=== PATIENT | male | born 1960 | race Caucasian/White ===

== ENCOUNTER → 2022-07-27 21:04 | Outpatient (CLI) | payer OTHER, SELFPAY ==
[2022-07-27 21:44] LABS: Basophils # 0.1 K/mm3 (0-0.2); Basophils % 1.3 % (0.1-2.0); Eosinophils # 0.2 K/mm3 (0.0-0.4); Eosinophils % 2.9 % (0.1-12.0); Hematocrit 47.2 % (42.0-52.0); Hemoglobin 14.8 g/dL (14.1-18.0); Lymphocytes # 1.8 K/mm3 (0.7-4.5); Lymphocytes % 34.9 % (10-50); Mean Corpuscular HGB Conc 31.4 g/dL (31.8-35.4); Mean Corpuscular Hemoglobin 31.1 pg (27.0-31.2); Mean Corpuscular Volume 99.1 fl (80-94); Mean Platelet Volume 9.7 fl (7.4-10.4); Monocytes # 0.4 K/mm3 (0.1-1.0); Monocytes % 6.9 % (1.7-9.3); Neutrophils # 2.8 K/mm3 (1.8-7.8); Neutrophils % 54.1 % (37.0-80.0); Platelet Count 318 K/mm3 (142-424); Red Blood Count 4.76 M/mm3 (4.60-6.20); Red Cell Distribution Width 12.8 % (11.5-17.5); White Blood Count 5.3 K/mm3 (4.8-10.8)
[2022-07-27 21:48] LABS: Alanine Aminotransferase 36 U/L (12-78); Albumin Level 4.3 g/dl (3.5-5.0); Albumin/Globulin Ratio 1.5 (1.1-1.8); Alkaline Phosphatase 64 U/L (38-126); Anion Gap 14.8 mEq/L (5-15); Aspartate Amino Transferase 53 U/L (17-59); Blood Urea Nitrogen 24 mg/dl (9-20); Calcium 9.1 mg/dl (8.4-10.2); Carbon Dioxide 25 mmol/L (22.0-30.0); Chloride 105 mmol/L (98-107); Chol/HDL Ratio 3.8 (1-3.5); Cholesterol 181 mg/dl (140-200); Estimated Glomerular Filt Rate 62 ml/min (>60); GFR (African American) 75 ML/MIN (>60); Globulin 2.8 g/dL (1.3-3.2); Glucose 112 mg/dl (74-100); HDL Cholesterol 48 mg/dl (40-60); Potassium 4.8 mmoL/L (3.5-5.1); Sodium 140 mmol/L (136-145); Total Protein,Serum 7.1 g/dl (6.3-8.2); Triglycerides 113 mg/dl (30-150); VLDL Cholesterol 23 mg/dL (0-40)
[2022-07-27 22:19] LABS: Prostate Specific Ag Screen 3.5 ng/ml (0.0-4.0); Thyroid Stimulating Hormone 1.25 uIU/mL (0.465-4.68)
[2022-07-29 08:55] LABS: Direct LDL Cholesterol 97 mg/dL (100-129)
[2022-08-04 16:12] LABS: Testosterone,Free 4.8 pg/mL (6.6-18.1)
== END ==
PROVIDERS: PCP Family Medicine; Visit Provider Family Medicine
DX: I49.9 Cardiac arrhythmia, unspecified (principal); R53.83 Other fatigue; N40.0 Benign prostatic hyperplasia without lower urinary tract symptoms; Z12.5 Encounter for screening for malignant neoplasm of prostate
CPT/HCPCS: 80053; 80061; 84402; 84403; 84443; 85025; G0103

== ENCOUNTER → 2022-07-29 12:38 | Outpatient (CLI) | payer OTHER, SELFPAY ==
--- NOTE | 2022-07-29 12:41 | CA_ITS ---
APPROVED REPORT EXAM: Comprehensive 2D, Doppler, and color-flow Echocardiogram Diagnostic Medical Sonographer: Ami Barbour, RCS, RVS Ht: 6 ft 0 in Wt: 195lbs BSA: 2.11 BP: 132/82 mmHg Indications: Murmur, Fatigue 2D Dimensions IVSd 1.05 cm LVEF (Visual) 73.30 % PWd 0.96 cm LA Volume 50.30 mL LVDd 4.88 cm LA Volume Index 23.80 mL/m2 (M/F) 16-34 LVDs 2.81 cm Aortic Root 2.97 cm Left Atrium 2.42 cm LVOT 2.12 cm (M/F) 1.5-2.5 M-Mode Dimensions RVDd 2.48 cm (0.9-2.6) LA Diam 2.99 cm (1.9-4.0) LVDd 4.93 cm (3.5-5.7) Ao Diam 3.33 cm (2.0-3.7) LVDs 3.08 cm (3.5-5.7) IVSd 0.97 cm (0.6-1.1) PWd 0.97 cm (0.6-1.1) EF (Teich) 67.40% EPSs 0.20 cm FS 37.50% EDV (Teich) 114.40 mL TAPSE 2.51 (<1.7) ESV (Teich) 37.30 mL LV Diastology E Decel Time 237.00 (160-240 msec) E/A Ratio 2.12 MED E' 10.00 (< 7 cm/sec) MED A' 10.80 cm/s E'/MED E' Ratio 13.38 (>14) LAT E' 10.00 (<10 cm/sec) LAT A' 10.00 cm/s E/LAT E' Ratio 13.38 (>14) Aortic Valve LVOT Max 129.00 (70-110 cm/s) LVOT VTI 28.84 cm AoV Peak Jimmy. 163.00 (50-130 cm/s) AO Peak GR. 10.60 mmHg AO Mean GR. 5.90 (<5 mmHg) AO VTI 37.13 (18-25 cm) CORBY (VTI) 2.74 (2.5-4.5 cm2) Mitral Valve MV A Velocity 63.00 (40-130 cm/s) E/A Ratio 2.12 MV Decel. Time 237.00 (160-240 ms) MV Mean Gr. 1.30 (<2mmHg) MV PHT 70.00 ms Pulmonary Valve PV Peak Velocity 105.00 (50-150 cm/s) IN End VMAX 180.00 cm/s Tricuspid Valve TR P. Velocity 202.00 cm/s RAP Estimate 10.00 mmHg RVSP 26.40 mmHg Left Ventricle Left atrium is normal size, left ventricle is normal size, there is no concentric left ventricular hypertrophy, estimated ejection fraction 55% with no regional wall motion abnormality, diastolic parameters are within normal range. Right Ventricle Right atrium and right ventricle are normal size and contractility. Aortic Valve Aortic valve is minimally thickened and fibrosed there is no aortic stenosis or aortic insufficiency. Mitral Valve Mitral valve grossly normal, there is trace mitral regurgitation. Tricuspid Valve Tricuspid valve grossly normal, there is trace tricuspid regurgitation, tricuspid regurgitation jet velocity is inadequate for calculation of the right ventricular systolic pressure. Pulmonic Valve Pulmonic valve is poorly visualized. Great Vessels Aortic root is normal size. Inferior vena cava is normal size with normal inspiratory collapse. Pericardium No significant pericardial effusion noted. Conclusion 1. Normal left ventricular size preserved left ventricular systolic function, estimated ejection fraction 55% with no regional wall motion abnormality, diastolic parameters are within normal range. 2. Trace mitral and tricuspid regurgitation. 3. No significant pericardial effusion noted. 4. Inferior vena cava is normal size with normal inspiratory collapse. Electronically signed by : Dominik Perdomo MD 07/30/2022 12:41:47
== END ==
PROVIDERS: PCP Family Medicine; Visit Provider Family Medicine
DX: I49.9 Cardiac arrhythmia, unspecified (principal); R01.1 Cardiac murmur, unspecified
CPT/HCPCS: 93306

== ENCOUNTER → 2022-08-11 05:55 | Outpatient (CLI) | payer OTHER, SELFPAY ==
[2022-08-20 10:14] LABS: Testosterone, Total, LC/MS 585 ng/dL (.)
== END ==
PROVIDERS: PCP Family Medicine; Visit Provider Family Medicine
DX: R53.83 Other fatigue (principal)
CPT/HCPCS: 84403

== ENCOUNTER → 2023-04-11 17:08 | Outpatient (CLI) | payer OTHER, SELFPAY ==
[2023-04-11 19:46] LABS: Basophils % 0.4 % (0.1-2.0); Eosinophils # 0.1 K/mm3 (0.0-0.4); Eosinophils % 1.1 % (0.1-12.0); Hematocrit 43.3 % (42.0-52.0); Hemoglobin 13.9 g/dL (14.1-18.0); Lymphocytes # 1.6 K/mm3 (0.7-4.5); Lymphocytes % 22.8 % (10-50); Mean Corpuscular HGB Conc 32.2 g/dL (31.8-35.4); Mean Corpuscular Hemoglobin 30.6 pg (27.0-31.2); Mean Corpuscular Volume 95.2 fl (80-94); Mean Platelet Volume 9.3 fl (7.4-10.4); Monocytes # 0.5 K/mm3 (0.1-1.0); Monocytes % 7.2 % (1.7-9.3); Neutrophils # 4.7 K/mm3 (1.8-7.8); Neutrophils % 68.6 % (37.0-80.0); Platelet Count 296 K/mm3 (142-424); Red Blood Count 4.54 M/mm3 (4.60-6.20); Red Cell Distribution Width 12.7 % (11.5-17.5); White Blood Count 6.8 K/mm3 (4.8-10.8)
[2023-04-11 19:56] LABS: Alanine Aminotransferase 40 U/L (12-78); Albumin Level 4.2 g/dl (3.5-5.0); Albumin/Globulin Ratio 1.7 (1.1-1.8); Alkaline Phosphatase 62 U/L (38-126); Anion Gap 16.7 mEq/L (5-15); Aspartate Amino Transferase 39 U/L (17-59); Bilirubin,Total 0.8 mg/dl (0.2-1.3); Blood Urea Nitrogen 25 mg/dl (9-20); Calcium 8.7 mg/dl (8.4-10.2); Carbon Dioxide 24 mmol/L (22.0-30.0); Chloride 101 mmol/L (98-107); Cholesterol 175 mg/dl (140-200); Estimated Glomerular Filt Rate 62 ml/min (>60); GFR (African American) 74 ML/MIN (>60); Globulin 2.5 g/dL (1.3-3.2); Glucose 90 mg/dl (74-100); HDL Cholesterol 58 mg/dl (40-60); Potassium 4.7 mmoL/L (3.5-5.1); Sodium 137 mmol/L (136-145); Total Protein,Serum 6.7 g/dl (6.3-8.2); Triglycerides 76 mg/dl (30-150); VLDL Cholesterol 15 mg/dL (0-40)
[2023-04-11 20:07] LABS: Direct LDL Cholesterol 103.33 mg/dL (100-129)
[2023-04-11 20:11] LABS: T4 (Thyroxine) 7.2 ug/dl (5.53-11.0)
[2023-04-11 20:13] LABS: 25-OH Vitamin D, Total 90.2 ng/mL (30-100)
[2023-04-11 20:25] LABS: Thyroid Stimulating Hormone 0.94 uIU/mL (0.465-4.68)
[2023-04-11 20:44] LABS: Vitamin B12 691 pg/mL (239-931)
[2023-04-11 21:18] LABS: Hemoglobin A1C 5.4 % (4.0-6.0)
[2023-04-13 13:58] LABS: Estradiol 35.6 pg/mL (7.6-42.6); PSA, Free 0.46 ng/mL; Prostate Specific Ag 6.1 ng/mL (0.0-4.0); Testosterone,Total 651 ng/dL (264-916); Thyroid Peroxidase Antibodies <9 IU/mL (0-34); Triiodothyronine (T3) Free 3.4 pg/mL (2.0-4.4)
== END ==
PROVIDERS: PCP Urology; Visit Provider Urology
DX: E55.9 Vitamin D deficiency, unspecified (principal); R41.3 Other amnesia; R51.9 Headache, unspecified; M25.50 Pain in unspecified joint; G47.00 Insomnia, unspecified; D51.0 Vitamin B12 deficiency anemia due to intrinsic factor deficiency; R53.83 Other fatigue; E07.9 Disorder of thyroid, unspecified; E29.1 Testicular hypofunction; Z12.5 Encounter for screening for malignant neoplasm of prostate
CPT/HCPCS: 80053; 80061; 82306; 82607; 82670; 83036; 84153; 84154; 84403; 84436; 84443; 84481; 85025; 86376

== ENCOUNTER → 2023-07-26 21:07 | Outpatient (CLI) | payer OTHER, SELFPAY ==
[2023-07-26 22:26] LABS: Basophils % 0.7 % (0.1-2.0); Eosinophils # 0.1 K/mm3 (0.0-0.4); Eosinophils % 1.2 % (0.1-12.0); Hematocrit 46.8 % (42.0-52.0); Hemoglobin 15.4 g/dL (14.1-18.0); Lymphocytes # 1.3 K/mm3 (0.7-4.5); Lymphocytes % 25.8 % (10-50); Mean Corpuscular Hemoglobin 31.5 pg (27.0-31.2); Mean Corpuscular Volume 95.6 fl (80-94); Monocytes # 0.4 K/mm3 (0.1-1.0); Monocytes % 8.2 % (1.7-9.3); Neutrophils # 3.2 K/mm3 (1.8-7.8); Neutrophils % 64.2 % (37.0-80.0); Platelet Count 274 K/mm3 (142-424); Red Cell Distribution Width 12.7 % (11.5-17.5)
[2023-07-28 08:18] LABS: Estradiol 24.7 pg/mL (7.6-42.6); Prostate Specific Ag 4.2 ng/mL (0.0-4.0); Testosterone,Total 618 ng/dL (264-916)
== END ==
PROVIDERS: PCP Urology; Visit Provider Urology
DX: I49.9 Cardiac arrhythmia, unspecified (principal); R53.83 Other fatigue; N40.0 Benign prostatic hyperplasia without lower urinary tract symptoms; Z12.5 Encounter for screening for malignant neoplasm of prostate
CPT/HCPCS: 82670; 84153; 84154; 84403; 85025

== ENCOUNTER 2024-01-23 07:43 | Day surgery (SDC) | payer OTHER, SELFPAY ==
[2024-01-23 07:52] VITALS: BP 139/71; PULSE 54; RESP 18; TEMP 36.2; O2SAT 98; BMI 25.6
[2024-01-23 08:25] VITALS: BP 130/65; PULSE 57; RESP 18; TEMP 36.2; O2SAT 98
--- NOTE | 2024-01-23 08:25 | P.OP_ITS ---
Date of procedure: 01/23/24 Pre-op Diagnosis:: Sebaceous cyst on the posterior neck Post-op Diagnosis:: Some Procedure performed:: Excision of probable inclusion cyst left posterior neck (excisional length 2.5 cm) with intermediate complexity closure Surgeon:: Rip Li MD Anesthesia: local Estimated blood loss (mL): 3 Operative findings:: Consistent with noninfected sebaceous cyst Operative note:: Patient was taken to the local procedure room. He was positioned in the lateral position. The area was prepped and draped in the standard surgical fashion. Lesion was marked with a skin marker. Local anesthetic was infiltrated. Tammy ptical incision was made. Careful dissection was carried down to the underlying cyst. It was excised using scissor dissection in its entirety with the overlying attached skin ellipse. There appeared to be no evidence of any residual cyst wall. There was good hemostasis. Dermal tissues were closed with a couple of interrupted 3-0 Vicryl sutures. Skin was closed with 4-0 nylon. Clean dry sterile dressing was applied. Condition: stable Disposition: other Complications:: None immediately apparent
== END 2024-01-23 08:30 | disposition home or self-care (01) ==
PROVIDERS: PCP Family Medicine; Visit Provider Surgery
PROC: (CPT 11423; principal; 2024-01-23 12:30)
DX: L72.3 Sebaceous cyst (principal); L72.0 Epidermal cyst
CPT/HCPCS: 11423; 12041

== ENCOUNTER 2024-02-20 12:01 | Outpatient (CLI) | payer OTHER, SELFPAY ==
[2024-02-20 12:48] LABS: Blood Urea Nitrogen 35 mg/dl (9-20); Estimated Glomerular Filt Rate 76 ml/min (>60); GFR (African American) 92 ML/MIN (>60)
[2024-02-21 08:17] LABS: Sex Hormone Binding Globulin 63.7 nmol/L (19.3-76.4)
[2024-02-23 21:08] LABS: Free Testosterone (Direct) 3.8 pg/mL (6.6-18.1)
== END 2024-02-20 23:59 ==
LOC: LAB 12:03
PROVIDERS: PCP Family Medicine; Visit Provider Urology
DX: R97.20 Elevated prostate specific antigen [PSA] (principal); N52.9 Male erectile dysfunction, unspecified; E34.9 Endocrine disorder, unspecified; E29.1 Testicular hypofunction
CPT/HCPCS: 36415; 82565; 84270; 84520

== ENCOUNTER 2024-08-01 11:53 | Emergency (ER) | payer OTHER, SELFPAY ==
[2024-08-01 12:10] VITALS: BP 121/81; PULSE 54; RESP 17; TEMP 36.7; O2SAT 100; BMI 24.7
--- NOTE | 2024-08-01 12:10 | PC.NURSE ---
LACERATION CLEANED WITH HIBICLENSE AND STERILE WATER AT THIS TIME
--- NOTE | 2024-08-01 12:23 | ED_ITS ---
Discharge Plan Disposition Patient Disposition: Home, Self-Care Condition: Good Prescriptions Prescriptions: New amoxicillin-pot clavulanate 875-125 mg Tablet 1 tab PO Q12H 7 Days Qty: 14 0RF No Action tamsulosin 0.4 mg capsule 0.4 mg PO DAILY Qty: 90 0RF tadalafil [Cialis] 5 mg tablet 5 mg PO DAILY Qty: 30 3RF aspirin 81 mg Tablet,Delayed Release (Dr/Ec) 81 mg PO DAILY Referrals Follow up/Referrals: Rashad Antonio MD [Primary Care Provider] - See instructions Activity Restrictions/Add. Instructions Additional Instructions/Restrictions: Suture instructions: ?You have required stitches today. Please read the following instructions so you know how to care for them: ?1. Keep wound area dry for the first 24 hours. 2?? May clean gently with mild soap and water, after 48 hours to prevent crusting over suture knots. 3. You may shower if your provider gives permission but do not take a bath until the skin is healed.. 4. Never leave a wet dressing or Band-Aid on your stitches as this allows bacteria to reach the area and may cause infection. Band-aids can cause the wound to sweat and not recommended to wear for long periods of time Watch for signs of infection: ? Increasing redness, tenderness or warmth around the suture site ? Unusual swelling around the site ? Appearance of pus around each suture or any red streaks ? Fever If you develop any of the above signs or symptoms of infection, Follow up with Family Physician immediately 5. Suture removal in _8-10___days 6. Return to [facility] or follow up with family doctor for removal. This can be done by any medical provider dur?ing regular hours on Tuesday through Tuesday, by appointment. Clinical Impressions Clinical Impression: Laceration Instructions Patient Instructions: DI for Laceration Repair, DI for Laceration Repair -- Simple Print Language Print Language: [place] Discharge ED Provider: Michaelle Noonan [facility] HPI General Stated complaint: AO 08/01/24 11:30, lac to lower rt leg Time Seen by Provider: 08/01/24 12:23 History of Present Illness Provider Complaint: Patient states that he accidently backed into a broken piece of glass that was sticking out and it cut him on his right lower calf area States that he noticed it looked like he may need stitches and he was unsure of his last tetanus so he came in to get it checked Related Data Home Medications ?Medication ?Instructions ?Recorded ?Confirmed aspirin 81 mg tablet,delayed 81 mg PO DAILY 08/01/24 08/01/24 release Previous Rx's ?Medication ?Instructions ?Recorded tadalafil 5 mg tablet (Cialis) 5 mg PO DAILY #30 tabs 05/14/24 tamsulosin 0.4 mg capsule 0.4 mg PO DAILY #90 caps 05/14/24 amoxicillin 875 mg-potassium 1 tab PO Q12H 7 days #14 tabs 08/01/24 clavulanate 125 mg tablet Allergies Allergy/AdvReac Type Severity Reaction Status Date / Time No Known Allergies Allergy Verified 07/11/24 12:58 [facility] Disclaimer: The information contained in this section may have been updated after the patient was seen, as this information can be updated by other users. Medical History Excessive daytime sleepiness Broken collarbone Tendon injury Umbilical hernia Surgical History History of local excision of skin lesion History of umbilical hernia repair History of colonoscopy History of shoulder surgery H/O knee surgery H/O wrist surgery Family History Mother Hypertension Father Kidney disease Social History Smoking Status: Never smoker second hand exposure: No alcohol intake: current alcohol intake frequency: a few times a month counseling given: Yes substance use type: denies use current occupational status: retired Travel in the last 8 weeks: None household members: spouse housing: house marital status: ROS Obtained: Yes All systems reviewed & no additional complaints except as documented and Yes Systems reviewed as appropriate & no additional complaints except as documented Constitutional Constitutional: Reports system reviewed and no additional complaints, except as documented and Reports as per HPI ENT Ears, Nose, Mouth, and Throat: Reports system reviewed and no additional complaints, except as documented and Reports as per HPI Cardiovascular Cardiovascular: Reports system reviewed and no additional complaints, except as documented and Reports as per HPI Respiratory Respiratory: Reports system reviewed and no additional complaints, except as documented and Reports as per HPI Gastrointestinal Gastrointestingal: Reports system reviewed and no additional complaints, except as documented and as per HPI Integumentary/Breasts Skin/Breast: Reports system reviewed and no additional complaints, except as documented, Reports as per HPI and Reports other (laceration to right calf area ) Physical Exam General General appearance: alert and in no apparent distress ENT ENT exam: Present mucous membranes moist Respiratory Respiratory exam: Present normal lung sounds bilaterally; Absent respiratory distress or wheezes Cardiovascular Cardiovascular exam: Present regular rate, normal rhythm and normal heart sounds Expanded Lower Extremity Exam Right: Leg image: 2 1. laceration noted, no active bleeding noted Gait: observed and normal Neurological Exam Neurological exam: Present alert, oriented X3 and normal gait Medical Decision Making Booker Inquiry Pt receiving controlled substance: No Booker was queried for this patient: No Orders (Tests/Meds): ED MEDICATIONS Generic Name Dose Route Start Last Admin Trade Name Freq PRN Reason Stop Dose Admin Lidocaine HCl 2 ml 08/01/24 12:18 Lidocaine 1% Pf 2ml Ampule SQ 08/01/24 12:19 ONCE ONE Tetanus/Reduced Diphtheria/Acell Pertussis 0.5 ml 08/01/24 12:17 Tet/Diphth/Pert-Adult 0.5ml Syringe IM 08/01/24 12:18 .ONCE ONE Procedures Laceration Laceration 1: Site: lower extremity Side (If applicable): right Size (cm): 2 Description: linear Depth: simple, single layer Local Anesthetic: lidocaine 1% Pre-repair: wound explored and irrigated extensively Skin layer closed with: nylon Size (cm): 4-0 Number of sutures: 9 Technique: simple, interrupted (wound edges approximated well)
[2024-08-01] MEDS: TET/DIPHTH/PERT-ADULT 0.5ML SYRINGE 0.5 ML IM (12:29)
[2024-08-01] MEDS: LIDOCAINE 1% PF 2ML AMPULE 2 ML SQ (12:29)
[2024-08-01 12:57] VITALS: BP 121/81; PULSE 54; RESP 17; TEMP 36.7; O2SAT 100
--- NOTE | 2024-08-01 13:08 | PC.NURSE ---
DRY, NONSTICK DRESSING APPLIED TO LACERATION AREA
== END 2024-08-01 13:01 | disposition home or self-care (01) ==
PROVIDERS: Emergency Provider Nurse Practitioner; PCP Family Medicine
DX: S81.811A Laceration without foreign body, right lower leg, initial encounter (principal); W25.XXXA Contact with sharp glass, initial encounter; Z23 Encounter for immunization
CPT/HCPCS: 12001; 90471; 90715; 99204; 99213; G0463

== ENCOUNTER 2024-08-06 21:59 | Outpatient (CLI) | payer OTHER, SELFPAY ==
[2024-08-08 08:49] LABS: PSA, Free 0.45 ng/mL; Prostate Specific Ag 4.1 ng/mL (0.0-4.0)
== END 2024-08-06 23:59 | disposition home or self-care (01) ==
LOC: LAB.DROPOF 22:01
PROVIDERS: PCP Urology; Visit Provider Urology
DX: R97.20 Elevated prostate specific antigen [PSA] (principal)
CPT/HCPCS: 84153; 84154

== ENCOUNTER 2025-02-11 09:17 | Outpatient (CLI) | payer OTHER, SELFPAY ==
[2025-02-12 06:49] LABS: Sex Hormone Binding Globulin 68.4 nmol/L (19.3-76.4)
[2025-02-12 08:24] LABS: PSA, Free 0.65 ng/mL
[2025-02-12 10:37] LABS: Testosterone,Total 555 ng/dL (264-916)
== END 2025-02-11 23:59 | disposition home or self-care (01) ==
LOC: LAB 09:18
PROVIDERS: PCP Family Medicine; Visit Provider Urology
DX: N40.0 Benign prostatic hyperplasia without lower urinary tract symptoms (principal); E29.1 Testicular hypofunction
CPT/HCPCS: 36415; 84153; 84154; 84270; 84403

== ENCOUNTER 2025-05-28 11:41 | Outpatient (CLI) | payer OTHER, SELFPAY ==
--- OUTSIDE RECORDS SUMMARY | 2025-05-28 11:43 | XMS_ITS | Clinical Summary ---
Author Organization Healthcare Address [address] [place] [address] Care Team Providers Care Parachute Marker Name Role Phone Tanvir Lambert MD Primary Care Provider [phone] Allergies No known active allergies Medications tamsulosin (Flomax) 0.4 MG 24 hr capsule Take 1 capsule (0.4 mg) by mouth daily. 2 Active tadalafil (Cialis) 5 MG tablet Take 1 tablet (5 mg) by mouth daily. 4 Active acetaminophen (Tylenol Extra Strength) 500 MG tablet Take 2 tablets (1,000 mg) by mouth every 8 (eight) hours. 100 tablet 4 Active Additional Information Patient not taking.Reported on 12/04/2024 Active Problems Problem Noted Date Diagnosed Date Arthritis of right hip 08/14/2024 Family History Medical History Relation Name Comments Stroke Other Anesthesia problems Neg Hx Malig Hyperthermia Neg Hx Relation Name Status Comments Other Social History Tobacco Use Types Packs/Day Years Used Date Smoking Tobacco: Never Passive Smoke Exposure: Never Smokeless Tobacco: Never Tobacco Cessation:Counseling Given: Not Answered Comments:Cigar once every couple of months Alcohol Use Standard Drinks/Week Comments Yes 1 (1 standard drink = 0.6 oz pur e alcohol) PHQ-2 Answer Date Recorded Patient Health Questionnaire-2 Score 0 09/24/2024 Sex and Gender Information Value Date Recorded Sex Assigned at Male 12/16/2023 11:17 AM EST Legal Sex Male 6:12 PM EDT Gender Identity Male 12/16/2023 11:17 AM EST Sexual Orientation Straight 12/16/2023 11 :17 AM EST Last Filed Vital Signs Vital Sign Reading Time Taken Comments Blood Pressure 136/77 12/04/2024 8:58 AM EST Pulse 65 12/04/2024 8:58 AM EST Temperature 36.7 C (98.1 F) 11/14/2024 2:00 PM EST Respiratory Rate 16 11/14/2024 11:1 5 AM EST Oxygen Saturation 99% 12/04/2024 8:58 AM EST Inhaled Oxygen Concentration - - Weight 84.8 kg (186 lb 15.2 oz) 01/15/2025 9:41 AM EST Height 182.9 cm (6') 12/04/2024 8:58 AM EST Body Mass Index 25.35 12/04/2024 8:58 AM EST Plan of Treatment Health Maintenance Due Date Last Done Comments [facility]-HIV Screening 1962 [facility]-Hepatitis C Screening 1962 [facility]-/Child/Adol SDOH Screenings 1960 [facility]- SDOH Screenings 02/29/1980 [facility]-Adult SDOH Screenings 02/29/1980 CT Colonography 2007 Colonoscopy 2007 FIT-DNA 2007 FIT 2007 FOBT 2007 Sigmoidoscopy 2007 [facility]-Colorectal Cancer Screening 2007 [facility]-Pneumococcal Vaccine: 50+ Years (1 of 1 - PCV) 02/29/2012 [facility]-Zoster Vaccines (1 of 2) 02/29/2012 [id number] Vaccine ( - season) 2024 [facility]-Influenza Vaccine (#1) 2025 [facility]-Depression Screening 09/24/2025 09/24/2024 [facility]-DTaP,Tdap,and Td Vaccines (2 - Td or Tdap) 08/01/2034 08/01/2024 [facility]-RSV Vaccine: 60+ Years or (1 - 1-dose 75+ series) 2037 [facility]-Obesity Intervention Completed 025, 12/04/2024, 09/24/2024, Additional history exists HPV Vaccines Aged Out No longer eligi ble based on patient's age to complete this topic [facility]-HIB Vaccines Aged Out No longer e ligible based on patient's age to complete this topic [facility]-Hepatitis A Vaccines Aged Out No longer eligible based on patient's age to complete this topic [facility]-IPV Vaccines Aged Out No longer e ligible based on patient's age to complete this topic [facility]-Rotavirus Vaccines Aged Out No lo nger eligible based on patient's age to complete this topic Goals Goal Patient Goal Type Associated Problems Recent Progress Patient-Stated? Author Autogenera donnie Goal Care Plan Autogenerated Problem No Luis Alfredo Patel MD Medical Devices Implanted Type Area Metal Bench Patternmaker Device Identifier Shelf Expiration Date Model / Serial / Lot Chg Shell R3 3 Hole Acet 52mm - [id number] Implanted:Qty: 1 on 11/14/2024 by Luis Alfredo Patel MD at [facility] Hip Right: Hip [id number] 03/21/2034 [id number] / / [id number] Chg Head Oxinium Fem 11/10 36 - [id number] Implanted:Qty: 1 on 11/14/2024 by Luis Alfredo Patel MD at [facility] Hip Right: Hip [employer]-[id number] 06/19/2034 [id number] / / [id number] Chg Liner R3 20 Deg Xlpe Acet - [id number] Implanted:Qty: 1 on 11/14/2024 by Luis Alfredo Patel MD at [facility] Liner Right: Hip [employer]-[id number] 03/19/2034 [id number] / / [id number] Chg Screw Ref Spher Head 40mm - [id number] Implanted:Qty: 1 on 11/14/2024 by Luis Alfredo Patel MD at [facility] Screw Right: Hip [employer]-[id number] 04/15/2034 [id number] / / [id number] Chg Stem Anthology Ho Por Pl H - [id number] Implanted:Qty: 1 on 11/14/2024 by Luis Alfredo Patel MD at [facility] Stem Right: Hip [employer]-[id number] 06/04/2034 [id number] / / [id number] Additional Health Concerns Active Problems Noted Date Diagnosed Date Autogenerated Problem 04/10/2025 Insurance [employer] Advance Directives * Full Code (Latest Code Status on File) Date Activated Date Inactivated Comments 11/14/2024 8:25 AM 11/14/2024 4:03 PM Question Answer Comments Patient has decision-making capacity? Yes Care Teams Parachute Marker Relationship Specialty Start Date End Date Tanvir Lambert MD [address] [place] [id number] PCP - General 04/10/21
--- OUTSIDE RECORDS SUMMARY | 2025-05-28 11:43 | XMS_ITS | Data Portability ---
Author Organization [facility] & YIMI Dumont ADMIN Address [address] [place] [address] Care Team Providers Care Director Of Cardiac Rehabilitation Name Role Phone DAY DEAN Primary Care Provider Assessment No assessment recorded. Plan of Treatment Reminders Order Date Submit Date Provider Last Modified By Organization Details Last Modified Time Details Appointments OV NEW 30 2024 09:15A Sukh BAXTER MD Not available Not available Not available TELEPHONI C VISIT 15 2024 04:30P Sukh BAXTER MD Not available Not available Not available Lab PSA, total, serum or plasma 2022 023 [facility] (Registration ), [address] [place], [address], 10/25/2023 09:25:22 urinalysi s, dipstick [address] [facility], [address] [place] [address], [address], [address], 10/25/2023 10:24:59 urinalysi s, dipstick [address] [facility], [address] [place] [address], [address], [address], 04/20/2023 10:19:30 urinalysi s, dipstick [address] [facility], [address] [place] [address], [address], [place], [address], 02/23/2023 09:15:35 Referral None recorded. Procedures bladder scan (PROC) 2022 023 [email or web address] [facility], [address], [address], [place], [address], 02/23/2023 09:15:35 Surgeries None recorded. Imaging None recorded. Medication Orders tadalafil 5 mg tablet 2022 023 [facility], [facility] [place], [address], 04/20/2023 10:09:47 tamsulosi n 0.4 mg capsule 2022 023 [facility] [employer] [facility], [facility] [place], [address], 04/20/2023 10:09:48 tadalafil 5 mg tablet 2022 023 [employer] [facility], [facility] [place], [address], 02/23/2023 09:17:28 tamsulosi n 0.4 mg capsule 2022 023 [employer] [facility], [facility] [place], [address], 02/23/2023 09:17:30 Patient TargetsNo targets recorded. Patient InstructionsNo instructions recorded. Reason for Referral None Reported. Results Created Date Observation Date Name Description Value Unit Range Abnormal Flag Note LastModifiedBy Organization Detail LastModifiedTime 02/24/2002/23/2023 bladd er scan (PROC ) Calculated Residual Urine: 112 ml Not Available [facility] [address], [place], [address], 02/23/2023 09:14:58 02/24/20 23 02/23/2023 urina lysis , dipst ick Leukocytes (reference range) negati ve Not Available [facility] [address] [place] [address] [address], [place], [address], 02/23/2023 09:14:52 02/24/2002/23/2023 urina lysis , dipst ick Nitrite (reference range:) negati ve Not Available [address], [place], [address], 02/23/2023 09:14:52 02/24/2002/23/2023 urina lysis , dipst ick Urobilinogen (reference range) 0.2 Not Available [facility] [address], [place], [address], 02/23/2023 09:14:52 02/24/2002/23/2023 urina lysis , dipst ick Protein (reference range) negati ve Not Available [address], [place], [address], 02/23/2023 09:14:52 02/24/2002/23/2023 urina lysis , dipst ick pH (reference range 5-8.5) 6.0 Not Available [address], [place], [address], 02/23/2023 09:14:52 02/24/2002/23/2023 urina lysis , dipst ick Blood (reference range:) negati ve Not Available [address], [place], [address], 02/23/2023 09:14:52 02/24/2002/23/2023 urina lysis , dipst ick Specific [place] (reference range) 1.015 Not Available [facility] [address], [place], [address], 02/23/2023 09:14:52 02/24/20 23 02/23/2023 urina lysis , dipst ick Ketone (reference range) negati ve Not Available [address], [place], [address], 02/23/2023 09:14:52 02/24/2002/23/2023 urina lysis , dipst ick Bilirubin (reference range) negati ve Not Available [address], [place], [address], 02/23/2023 09:14:52 02/24/2002/23/2023 urina lysis , dipst ick Glucose (reference range) negati ve Not Available [address], [place], [address], 02/23/2023 09:14:52 02/24/2002/23/2023 urina lysis , dipst ick Color (reference range: yellow-brown ) Yellow Not Available [address] [address], [place], [address], 02/23/2023 09:14:52 04/20/20 23 04/20/2023 urina lysis , dipst ick Leukocytes (reference range) negati ve Not Available [address] [address], [place], [address], 04/20/2023 09:55:43 04/20/20 23 04/20/2023 urina lysis , dipst ick Nitrite (reference range:) negati ve Not Available [address], [place], [address], 04/20/2023 09:55:43 04/20/20 23 04/20/2023 urina lysis , dipst ick Urobilinogen (reference range) 0.2 Not Available [address], [place], [address], 04/20/2023 09:55:43 04/20/2004/20/2023 urina lysis , dipst ick Protein (reference range) negati ve Not Available [facility] [address] [place] [address] [address], [place], [address], 04/20/2023 09:55:43 04/20/20 23 04/20/2023 urina lysis , dipst ick pH (reference range 5-8.5) 5.0 Not Available [facility] [address] [place] [address] [address], [place], [address], 04/20/2023 09:55:43 04/20/20 23 04/20/2023 urina lysis , dipst ick Blood (reference range:) negati ve Not Available [facility], [place], [address], 04/20/2023 09:55:43 04/20/20 23 04/20/2023 urina lysis , dipst ick Specific [place] (reference range) 1.015 Not Available [facility] [address] [place] [address] [address], [place], [address], 04/20/2023 09:55:43 04/20/2004/20/2023 urina lysis , dipst ick Ketone (reference range) negati ve Not Available [facility] [address] [place] [address] [address], [place], [address], 04/20/2023 09:55:43 04/20/2004/20/2023 urina lysis , dipst ick Bilirubin (reference range) negati ve Not Available [facility] [address] [place] [address] [address], [place], [address], 04/20/2023 09:55:43 04/20/2004/20/2023 urina lysis , dipst ick Glucose (reference range) negati ve Not Available [address] [address], [place], [address], 04/20/2023 09:55:43 04/20/20 23 04/20/2023 urina lysis , dipst ick Color (reference range: yellow-brown ) Yellow Not Available [facility] [place] [address] [address], [place], [address], 04/20/2023 09:55:43 10/25/2010/25/2023 urina lysis , dipst ick Leukocytes (reference range) negati ve Not Available [address] [address], [place], [address], 10/25/2023 09:19:54 10/25/20 23 10/25/2023 urina lysis , dipst ick Nitrite (reference range:) negati ve Not Available [address] [address], [place], [address], 10/25/2023 09:19:54 10/25/20 23 10/25/2023 urina lysis , dipst ick Urobilinogen (reference range) 0.2 Not Available [address], [address], 10/25/2023 09:19:54 10/25/20 23 10/25/2023 urina lysis , dipst ick Protein (reference range) negati ve Not Available [address], [address], 10/25/2023 09:19:54 10/25/20 23 10/25/2023 urina lysis , dipst ick pH (reference range 5-8.5) 6.0 Not Available [facility] [place], [address], 10/25/2023 09:19:54 10/25/20 23 10/25/2023 urina lysis , dipst ick Blood (reference range:) negati ve Not Available [facility] [address] [place] [address] [address], [place], [address], 10/25/2023 09:19:54 10/25/20 23 10/25/2023 urina lysis , dipst ick Specific [place] (reference range) 1.010 Not Available [address], [place], [address], 10/25/2023 09:19:54 10/25/2010/25/2023 urina lysis , dipst ick Ketone (reference range) negati ve Not Available [address] [address], [place], [address], 10/25/2023 09:19:54 10/25/20 23 10/25/2023 urina lysis , dipst ick Bilirubin (reference range) negati ve Not Available [address], [place], [address], 10/25/2023 09:19:54 10/25/20 23 10/25/2023 urina lysis , dipst ick Glucose (reference range) negati ve Not Available [address], [place], [address], 10/25/2023 09:19:54 10/25/20 23 10/25/2023 urina lysis , dipst ick Color (reference range: yellow-brown ) Yellow Not Available [address], [place], [address], 10/25/2023 09:19:54 05/28/20 25 05/28/2025 urina lysis , dipst ick Leukocytes (reference range) negati ve Not Available [place] [address] [address] [facility] [address], [place], [address], 05/28/2025 09:19:53 05/28/20 25 05/28/2025 urina lysis , dipst ick Nitrite (reference range:) negati ve Not Available [address] [address] [address] [facility] [address], [place], [address], 05/28/2025 09:19:53 05/28/20 25 05/28/2025 urina lysis , dipst ick Urobilinogen (reference range) 0.2 Not Available [place] [address] [address] [facility] [address], [place], [address], 05/28/2025 09:19:53 05/28/20 25 05/28/2025 urina lysis , dipst ick Protein (reference range) trace Not Available [place] [address] [address] [address] [facility] [address], [place], [address], 05/28/2025 09:19:53 05/28/20 25 05/28/2025 urina lysis , dipst ick pH (reference range 5-8.5) 5.0 Not Available [facility] [place] [address] [address] [facility] [address], [place], [address], 05/28/2025 09:19:53 05/28/20 25 05/28/2025 urina lysis , dipst ick Blood (reference range:) negati ve Not Available [address] [address] [address] [facility] [address], [place], [address], 05/28/2025 09:19:53 05/28/20 25 05/28/2025 urina lysis , dipst ick Specific [place] (reference range) 1.010 Not Available [address] [address] [address] [facility] [address], [place], [address], 05/28/2025 09:19:53 05/28/20 25 05/28/2025 urina lysis , dipst ick Ketone (reference range) negati ve Not Available [place] [address] [address] [facility] [address], [place], [address], 05/28/2025 09:19:53 05/28/20 25 05/28/2025 urina lysis , dipst ick Bilirubin (reference range) negati ve Not Available [place] [address] [address] [facility] [address], [place], [address], 05/28/2025 09:19:53 05/28/2005/28/2025 urina lysis , dipst ick Glucose (reference range) negati ve Not Available [place] [address] [address] [facility] [address], [place], [address], 05/28/2025 09:19:53 05/28/2005/28/2025 urina lysis , dipst ick Color (reference range: yellow-brown ) Yellow Not Available [place] [address] [address] [facility] [address], [place], [address], 05/28/2025 09:19:53 05/28/2005/28/2025 bladd er scan (PROC ) Calculated Residual Urine: 208 ml Not Available [place] [address] [address] [facility] [address], [place], [address], 05/28/2025 09:17:54 05/28/2004/27/2024 MRI, abdom en + pelvi s, w/wo contr ast No observ ation record ed. [email or web address] Not Available 2024 10:12:09 05/28/20 25 01/15/2025 XR, pelvi s, 1 or 2 view No observ ation record ed. [email or web address] Not Available 2024 10:13:45 Result Notes None recorded. Problems Name Problem SNOMED Code Status Onset Date Resolution Date Notes Provider Name and Address Organization Details Recorded Time Erectile dysfunction 285309535 Active 2023 Chantel Crase null, [place] - [facility] [place] 4 12:47:12 Slowing of urinary stream 69965947 Active 2023 Chantel Crase null, [place] - [facility] & [place] 4 12:47:20 Nocturia 405216503 Active 2023 Chantel Crase null, [place] - [facility] & [place] 4 12:47:26 Prostate specific antigen above reference range 726186066 Active 2024 KAYLA BAXTER MD [address], [place], [address] , [place] - [facility] - [place] & [place] 5 09:38:35 Fatigue 37128824 Active 2024 KAYLA BAXTER MD [address] [place] [address], [place], [address] , [place] - [facility] - [place] & [place] 5 09:37:40 Benign prostatic hyperplasia with outflow obstruction 776337899 Active 2024 KAYLA BAXTER MD [address] [place] [address], [place], [address] , [place] - [facility] - [place] & [place] 5 09:38:42 Problem Notes None recorded. Procedures Surgical History Date Name Laterality Status Provider Name and Address Organization Details Recorded Time 4 Other completed Shantel Jesus [place] [facility] & [place] 05/28/2025 09:16:53 1 Other completed Shantel Jesus [place] [facility] & [place] 05/28/2025 09:16:53 8 Other completed Shantel Jesus [place] [facility] & [place] 05/28/2025 09:16:53 7 Other completed Shantel Jesus [place] - [facility] & [place] 05/28/2025 09:16:53 7 Colonoscopy completed Shantel GILL - [facility] - [place] & [place] 05/28/2025 09:16:53 5 Other completed Shantel Blackwell [facility] - [place] & [place] 05/28/2025 09:16:53 0 Abdominal Surgery completed Shantel GILL - [facility] - [place] & [place] 05/28/2025 09:16:53 Imaging Results None recorded. Procedure Notes None recorded. Medical Equipment None Reported. Allergies No known drug allergies Medications Name Sig Start Date Stop Date Status Note LastModified by Organization Details LastModified Time valacyclovir 1 gram tablet 02/23 completed Not Available Not Available Not Available tamsulosin 0.4 mg capsule Take 1 capsule every day by oral route at bedtime for 30 days. active Not Available Not Available No t Available cephalexin 500 mg capsule 02/23 completed Not Available Not Available Not Available finasteride 5 mg tablet active Not Available Not Available Not Available tadalafil 5 mg tablet Take 1 tablet every day by oral route for 30 days. active Not Available Not Available No t Available meloxicam active Not Available Not Jeanette ilable Not Available aspirin active Not Available Not Avail able Not Available Vitals Date Recorded Body height Body mass index (BMI) Body weight Body temperature Systolic blood pressure Diastolic blood pressure Provider Name and Address Organization Details Last Updated DateTime 3 182.88 cm 26.6 kg/m2 32029.1 g 98.4 [degF] 122 mm[Hg] 76 mm[Hg] Yari Hyatt NP, S [address] [facility] [facility], [place], [address], [place] - [facility] & [place] 3 09:10:37 Date Recorded Body height Body mass index (BMI) Body weight Systolic blood pressure Diastolic blood pressure Provider Name and Address Organization Details Last Updated DateTime 04/20/2023 182.88 cm 26.4 kg/m2 08361.51 g 118 mm[Hg] 72 mm[Hg] Chantel GILL - [facility] & [place] 3 09:55:33 Date Recorded Body weight Systolic blood pressure Diastolic blood pressure Provider Name and Address Organization Details Last Updated DateTime 05/28/2025 45880.22 g 122 mm[Hg] 78 mm[Hg] Shantel Jesus [facility] & [place] 05/28/2025 09:17:30 Date Recorded Body height Body mass index (BMI) Body weight Body temperature Systolic blood pressure Diastolic blood pressure Provider Name and Address Organization Details Last Updated DateTime 3 182.88 cm 26.4 kg/m2 50835.5 1 g 98.7 [degF] 116 mm[Hg] 74 mm[Hg] Chantel Kelsey [facility] & [place] 3 09:20:56 Social History Question Answer Notes LastModified by Organizat ion Details LastModified Time Tobacco Smoking Status Never Smoker Shantel Jesus [facility] & [place] 05/28/2025 09:16:53 Do You Have An Advance Directive? No [email or web address] Information not available 05/28/2025 Are You Blind Or Do You Have Difficulty Seeing? No [email or web address] Information not available 05/28/2025 What Was The Date Of Your Most Recent Tobacco Screening? 04/19/2023 [email or web address] Information not available 05/28/2025 Are You Passively Exposed To Smoke? No [email or web address] Information not available 05/28/2025 Sex: Male Functional Status Question Answer Note LastModified by Organizat ion Details LastModified Time Do you use any illicit or recreational drugs? No [email or web address] Information not available 12/21/2023 What is your level of alcohol consumption? Occasional [email or web address]_[email or web address] Information not available 12/21/2023 Do you or have you ever used smokeless tobacco? Former smokeless tobacco user [email or web address] Information not available 05/28/2025 What is your exercise level? Heavy [email or web address] Information not available 05/28/2025 Mental Status Question Answer Note LastModified by Organization D etails LastModified Time Do you feel stressed (tense, restless, nervous, or anxious, or unable to sleep at night)? [id number] [email or web address] Information not available 05/28/2025 Family History Nothing Reported Notes:Father- kidney failure () Medical History No medical history recorded. Past Encounters Encounter ID Performer Location Encounter Start Date Encounter Closed Date Diagnosis/Indication Diagnosis SNOMED-CT Code Diagnosis ICD10 Code Diagnosis Note [id number] Yari Hyatt NP, S [facility] [address] [place] [address],[address] [place] [address] 02/23/2023 08:11:01 02/23/2023 09:12:09 Slowing of urinary stream 83662452 R39.12 UA clearPVR 112mlStart Tamsulosin 0.4mg dailyStart Tadalafil 5mg dailyRTC in 8 weeks for f/u of medication s Dribbling of urine 96216 000 N39.43 Nocturia 226405542 R35.1 Erectile dysfunction 860 858851 F52.21 Large prostate 158536741 N40.0 [id number] Yari Hyatt NP, S [facility] [address] [place] [address],[address] [place] [address] 4 04/20/2023 09:16:36 04/20/2023 10:06:39 Slowing of urinary stream 16491477 R39.12 UA clearConti nue Tamsulosin 0.4mg daily and Tadalafil 5mg dailyRTC in 6 months for f/u Dribbling of urine 52642 000 N39.43 Nocturia 824713054 R35.1 Erectile dysfunction 860 441638 F52.21 Large prostate 703099262 N40.0 [id number] Yari Hyatt NP, S [facility] [address] [place] [address],[address] [place] [id number] 10/25/2023 09:13:02 10/25/2023 09:28:37 Slowing of urinary stream 08878388 R39.12 UA clearConti nue Tamsulosin 0.4mg dailyConti nue Tadalafil 5mg dailyScree belgica PSA labwork given to pt to have performedR TC in 1 year for f/u with UA, EDDY, and PSA Nocturia 093040417 R35.1 Erectile dysfunction 860 402136 F52.21 Large prostate 218911963 N40.0 Screening for malignant neoplasm of prostate 511956776 Z12.5 [id number] KAYLA BAXTER MD [facility]-[address] [place] [address] 05/28/2025 09:02:08 05/28/2025 09:45:42 Prostate specific antigen above reference range 887391589 R97.20 Fatigue 40126980 R53.83 Benign pro static hyperplasia with outflow obstruction 837698243 N40.1 N13.8 Health Concerns Section Related Observation LastModified by Organization Detai ls LastModified Time None Recorded Concern Status LastModified by Organization Details LastModified Time None Recorded Advance Directives Directive N: Payers Insurance Date Sequence Insurance Name Policy Number Policy Ventura Covered Member ID Ventura Member ID Guarantor Name 05/25/2025 1 [id number] Tanvir Chamberlain [id number] Tanvir Chamberlain Notes Date Note Type Note Provider Name and Address Organization Details Recorded Time 02/23/2023 text/html 62 yowm presents to clinic for evaluation of weak urinary stream. patient reports he has been experiencing weak urinary stream with postvoid dribbling since June of 2022. He reports urinary stream is weak will have postvoid dribbling after urination. Reports occasional urinary frequency. Reports no medications have been trialed. Nocturia x1. Bowels move regularly. He denies any dysuria or gross hematuria. PSA was 3.5 on 07/27/2022. Paternal grandfather with history of prostate cancer. He denies any history of UTIs, prostatitis, or kidney stones. has never seen a urologist before.Additionally , patient reports he has been experiencing erectile dysfunction since 2018. Patient was on sildenafil up to 80 mg for approximately 8 years and the medication has become ineffective. Patient reports he is able to get an erection however he has rapiddetumescence. denies any pain or curvature with erection. Yari Hyatt, GINO, S [address], [place], [address], [facility] - [place] & [place] 02/23/2023 09:17:23 04/20/2023 text/html 63 yowm RTC for 8 week f/u of weak urinary stream and ED. At last visit on 02/23/2023 patient was started on tamsulosin 0.4 mg daily related to weak urinary stream and postvoid dribbling. Patient reports since starting the medication it has significantly helped his urinary stream and he is not experiencing any more post-void dribbling. He denies any overt side effects from the medication. Nocturia x1. He denies any dysuria or gross hematuria. Also at last visit patient was started on tadalafil 5 mg daily related to ED. Patient reports the medication is effective without any overt side effects. PSA was 3.5 on 07/27/2022. Paternal grandfather with history of prostate cancer. Yari Hyatt NP, S [address], [place], [address], [facility] & [place] 04/20/2023 10:07:34 10/25/2023 text/html 63 yowm RTC for 6 month f/u of weak urinary stream and ED. Weak urinary stream has been managed with Tamsulosin 0.4mg daily. Patient reports since starting the medication it has significantly helped his urinary stream and he is not experiencing any more post-void dribbling. He denies any overt side effects from the medication. Nocturia x1. He denies any dysuria or gross hematuria. ED has been managed with tadalafil 5 mg daily. Patient reports the medication is effective without any overt side effects. PSA was 3.5 on 07/27/2022. Paternal grandfather with history of prostate cancer. Yari Hyatt NP, S [address], [place], [address], [facility] & [place] 10/25/2023 09:29:05
[2025-05-28 12:19] LABS: Hematocrit 39.1 % (42.0-52.0); Hemoglobin 13.3 g/dL (14.1-18.0); Immature Granulocytes % 0.2 %; Mean Corpuscular HGB Conc 34.0 g/dL (31.8-35.4); Mean Corpuscular Hemoglobin 31.1 pg (27.0-31.2); Mean Corpuscular Volume 91.4 fl (80-94); Nucleated Red Blood Cells % 0 %; Platelet Count 222 K/mm3 (142-424); Red Blood Count 4.28 M/mm3 (4.60-6.20); Red Cell Distribution Width-SD 40.6 fL; White Blood Count 4.5 K/mm3 (4.8-10.8)
[2025-05-28 12:43] LABS: Alanine Aminotransferase 33 U/L (12-78); Albumin Level 4.1 g/dl (3.5-5.0); Albumin/Globulin Ratio 1.6 (1.1-1.8); Alkaline Phosphatase 59 U/L (38-126); Anion Gap 12.3 mEq/L (5-15); Aspartate Amino Transferase 30 U/L (17-59); Bilirubin,Total 1.4 mg/dl (0.2-1.3); Blood Urea Nitrogen 23 mg/dl (9-20); Calcium 9.1 mg/dl (8.4-10.2); Carbon Dioxide 25 mmol/L (22.0-30.0); Chloride 101 mmol/L (98-107); Creatinine,Serum 0.90 mg/dl (0.66-1.25); Estimated Glomerular Filt Rate 85 ml/min (>60); GFR (African American) 103 ML/MIN (>60); Globulin 2.5 g/dL (1.3-3.2); Glucose 94 mg/dl (74-100); Potassium 4.3 mmoL/L (3.5-5.1); Sodium 134 mmol/L (136-145); Total Protein,Serum 6.6 g/dl (6.3-8.2)
[2025-05-29 12:12] LABS: Testosterone,Total 867 ng/dL (264-916)
[2025-05-30 11:14] LABS: Testosterone,Free 9.7 pg/mL (6.6-18.1)
[2025-06-04 05:08] LABS: Testosterone, Total, LC/MS 763 ng/dL (.)
== END 2025-05-28 23:59 | disposition home or self-care (01) ==
LOC: LAB 11:42
PROVIDERS: PCP Family Medicine; Visit Provider Urology
DX: R53.83 Other fatigue (principal)
CPT/HCPCS: 36415; 80053; 82670; 84146; 84270; 84402; 84403; 85025